=== PATIENT | female | born 1990 | race African-American/Black ===

== ENCOUNTER 2022-04-05 07:44 | Outpatient (CLI) | payer BC | END 2022-04-05 07:45 | disposition home or self-care (01) | LOC: BICULT 07:44 | PROVIDERS: ATTEND Advanced Practice Midwife | DX: N63.10 Unspecified lump in the right breast, unspecified quadrant (principal) ==

== ENCOUNTER 2022-05-11 16:31 | Emergency (ER) | payer BC ==
[2022-05-11] MEDS ORDERED: Acetaminophen 500 MG TAB ONE (18:18)
== END 2022-05-11 19:43 | disposition home or self-care (01) ==
LOC: ERS 16:31
DX: R51.9 Headache, unspecified (principal); I10 Essential (primary) hypertension; Z79.899 Other long term (current) drug therapy
CPT/HCPCS: 70450; 75809

== ENCOUNTER 2022-08-09 09:00 | Outpatient (CLI) | payer BC ==
[2022-08-09] MEDS ORDERED: Iopamidol-370 76% 500 ML 1 ML ONE (09:53)
== END 2022-08-09 09:01 | disposition home or self-care (01) ==
LOC: BICCT 09:00
PROVIDERS: ATTEND Family Medicine
DX: K59.00 Constipation, unspecified (principal); Z98.2 Presence of cerebrospinal fluid drainage device
CPT/HCPCS: 74178; Q9967

== ENCOUNTER 2024-10-11 07:25 | Outpatient (CLI) | payer BC ==
[2024-10-11] MEDS ORDERED: Magnevist 469MG/ML 20 ML VIAL ONE (11:08)
== END 2024-10-11 07:26 | disposition home or self-care (01) ==
LOC: BICMRI 07:25
PROVIDERS: ATTEND Neurological Surgery
DX: G91.9 Hydrocephalus, unspecified (principal)
CPT/HCPCS: 36415; 70553; 82565